=== PATIENT | female | born 1990 | race Caucasian/White ===

== ENCOUNTER 2016-11-21 11:35 | Emergency (ER) | payer MEDICAID ==
[2016-11-21] MEDS ORDERED: NS 1,000 ML IV ONE (12:52)
--- NOTE | 2016-11-21 12:53 | UCPHY ---
H & P Time Seen by Provider: 11/21/16 12:28 Patient Type: Established HPI/ROS: 26-year-old female with a history of irritable bowel syndrome presents complaining of bloating and constipation for approximately 2 weeks. She denies fevers or chills, she has occasional nausea she denies vomiting. Review of systems As per HPI General no fever no chills no weakness HEENT no eye pain no eye discharge. No eye redness, no sore throat Respiratory no cough, no shortness of breath Cardiac no chest pain, no peripheral edema GI positive bloating abdominal pain, no diarrhea, positive constipation, no nausea, no vomiting no flank pain, no hematuria, no dysuria Musculoskeletal no myalgias, no joint pain Heme no easy bruising, no easy bleeding Endo no polyuria, no polydipsia Skin no rashes, no pruritus Neuro no syncope, no dizziness, no headaches Psych is no suicidal ideation, no homicidal ideation Past Medical/Surgical History: Uribel bowel syndrome Social History: Alcohol socially denies drug use Smoking Status: Current some day smoker Physical Exam: 26-year-old female alert and oriented nontoxic appearance, afebrile HEENT atraumatic normocephalic, extraocular muscles intact, anicteric Oropharynx negative for erythema negative exudate, tolerating her own secretions Neck supple no meningismus Lungs clear to auscultation bilaterally Heart regular rate and rhythm without murmur rub or gallop Abdomen nondistended normoactive bowel sounds soft nontender, no guarding no rebound Back no CVA tenderness, no step-offs, no spinal tenderness Extremities no cyanosis clubbing or edema Neuro alert and oriented, no focal deficits Constitutional: Initial Vital Signs Temperature (C) 36.8 C 11/21/16 12:03 Heart Rate 54 L 11/21/16 12:03 Respiratory Rate 18 11/21/16 12:03 Blood Pressure 129/45 H 11/21/16 12:03 O2 Sat (%) 98 11/21/16 12:03 O2 Delivery Mode Room Air Allergies/Adverse Reactions: No Known Allergies Allergy (Verified 11/21/16 12:02) Home Medications: Medication Instructions Recorded NO HOME MEDS 09/15/09 Medical Decision Making - Diagnostics Imaging: Obstructive series Negative for obstruction negative for free air negative for dilated bowel, moderate stool burden Chest x-ray normal ED Course/Re-evaluation: Patient seen and evaluated for abdominal bloating of cough, constipation Labs all within normal limits Obstructive series normal Patient given GI cocktail with mild relief of symptoms Impression Constipation Irritable bowel Plan Follow up with primary care - Data Points Laboratory Results: Laboratory Results 11/21/16 12:36 11/21/16 12:36 11/21/16 12:36 WBC 7.34 10^3/uL (3.80-9.50) RBC 4.82 10^6/uL (4.18-5.33) Hgb 15.3 g/dL (12.6-16.3) Hct 44.1 % (38.0-47.0) MCV 91.5 fL (81.5-99.8) MCH 31.7 pg (27.9-34.1) MCHC 34.7 g/dL (32.4-36.7) RDW 12.9 % (11.5-15.2) Plt Count 359 10^3/uL (150-400) MPV 9.4 fL (8.7-11.7) Neut % (Auto) 63.6 % (39.3-74.2) Lymph % (Auto) 27.4 % (15.0-45.0) Greene % (Auto) 7.5 % (4.5-13.0) Eos % (Auto) 0.4 L % (0.6-7.6) Baso % (Auto) 0.7 % (0.3-1.7) Nucleat RBC Rel Count 0.0 % (0.0-0.2) Absolute Neuts (auto) 4.67 10^3/uL (1.70-6.50) Absolute Lymphs (auto) 2.01 10^3/uL (1.00-3.00) Absolute Monos (auto) 0.55 10^3/uL (0.30-0.80) Absolute Eos (auto) 0.03 10^3/uL (0.03-0.40) Absolute Basos (auto) 0.05 10^3/uL (0.02-0.10) Absolute Nucleated RBC 0.00 10^3/uL (0-0.01) Immature Gran % 0.4 % (0.0-1.1) Immature Gran # 0.03 10^3/uL (0.00-0.10) Sodium 142 mEq/L (134-144) Potassium 3.8 mEq/L (3.5-5.2) Chloride 102 mEq/L (97-110) Carbon Dioxide 25 mEq/l (22-31) Anion Gap 15 mEq/L (8-16) BUN 11 mg/dL (7-23) Creatinine 0.7 mg/dL (0.6-1.0) Estimated GFR > 60 Glucose 92 mg/dL (70-100) Calcium 9.9 mg/dL (8.5-10.4) Total Bilirubin 0.7 mg/dL (0.1-1.4) AST 26 IU/L (14-46) ALT 21 IU/L (9-52) Alkaline Phosphatase 44 IU/L (38-126) Total Protein 8.6 H g/dL (6.3-8.2) Albumin 4.6 g/dL (3.5-5.0) Lipase 89.0 IU/L (23-300) Beta HCG, Qual NEGATIVE Medications Given: Discontinued Medications Sodium Chloride (Ns) 1,000 mls @ 0 mls/hr IV ONCE ONE PRN Reason: Wide Open Stop: 11/21/16 12:53 Last Admin: 11/21/16 13:00 Dose: 1,000 mls Miscellaneous Medication (Gi Cocktail) 55 ml PO EDNOW ONE Stop: 11/21/16 14:12 Last Admin: 11/21/16 14:25 Dose: 55 ml Departure - Departure Disposition: Home, Routine, Self-Care Clinical Impression: Constipation Condition: Good Instructions: Irritable Bowel Syndrome (ED), Constipation (ED) Referrals: NONE *PRIMARY CARE P,. [Primary Care Provider] - As per Instructions - PQRS PQRS Measurement: na
[2016-11-21 13:02] LABS: % IMMATURE GRANULYOCYTES 0.4 % (0.0-1.1); ABSOLUTE IMMATURE GRANULOCYTES 0.03 10^3/uL (0.00-0.10); ADD DIFF? NO; ADD MORPH? NO; ADD SCAN? NO; ATYPICAL LYMPHOCYTE FLAG 10 (0-99); FRAGMENT RBC FLAG 0 (0-99); HEMATOCRIT 44.1 % (38.0-47.0); HEMOGLOBIN 15.3 g/dL (12.6-16.3); LEFT SHIFT FLG 0 (0-99); LIPEMIA HEMOLYSIS FLAG 90 (0-99); MEAN CELL HEMOGLOBIN 31.7 pg (27.9-34.1); MEAN CELL HEMOGLOBIN CONCENTR. 34.7 g/dL (32.4-36.7); MEAN CELL VOLUME 91.5 fL (81.5-99.8); MEAN PLATELET VOLUME 9.4 fL (8.7-11.7); PLATELET CLUMPS FLAG 10 (0-99); PLATELET COUNT 359 10^3/uL (150-400); RED BLOOD CELL COUNT 4.82 10^6/uL (4.18-5.33); RED CELL DISTRIBUTION WIDTH 12.9 % (11.5-15.2)
[2016-11-21 13:09] LABS: ALANINE AMINOTRANSFERASE 21 IU/L (9-52); ALBUMIN 4.6 g/dL (3.5-5.0); ALKALINE PHOSPHATASE 44 IU/L (38-126); ANION GAP 15 mEq/L (8-16); ASPARTATE AMINOTRANSFERASE 26 IU/L (14-46); BILIRUBIN,TOTAL 0.7 mg/dL (0.1-1.4); CALCIUM 9.9 mg/dL (8.5-10.4); CARBON DIOXIDE 25 mEq/l (22-31); CHLORIDE 102 mEq/L (97-110); CREATININE 0.7 mg/dL (0.6-1.0); GLOMERULAR FILTRATION RATE > 60; GLUCOSE 92 mg/dL (70-100); POTASSIUM 3.8 mEq/L (3.5-5.2); SODIUM 142 mEq/L (134-144); TOTAL PROTEIN 8.6 g/dL (6.3-8.2)
--- NOTE | 2016-11-21 14:00 | DX ---
Three-way abdominal series. History: Abdominal pain. Rule out obstruction. Findings: Bowel gas pattern is unremarkable without significantly dilated loops of bowel. There are n o air-fluid levels or free air. No masses are seen or significant calcifications. Osseous structures are intact. PA view of the chest demonstrates no active cardiopulmonary disease. Impression: Normal three-way abdominal series.
[2016-11-21] MEDS ORDERED: MAALOX/LIDO/HYOSC GI COCKTAIL 55 ML BOTTLE PO ONE (14:11)
[2016-11-21 14:24] VITALS: O2SAT 97
[2016-11-21 14:49] VITALS: BP 111/75; PULSE 52; RESP 19; TEMP 98.6
== END 2016-11-21 14:49 | disposition home or self-care (01) ==
LOC: CED 11:35
DX: K58.9 Irritable bowel syndrome, unspecified (principal); Z72.0 Tobacco use
CPT/HCPCS: 74022-PO; 80053-PO; 83690-PO; 84703-PO; 85025-PO; 96360-PO; 99214-PO; G0463-PO